=== PATIENT | female | born 1985 | race African-American/Black ===

== ENCOUNTER 2017-02-13 19:43 | Emergency (ER) | payer OTHER ==
[~2017-02-13] VITALS: Ht 157.5 cm; Wt 70.3 kg
[~2017-02-13 19:43] MED LIST: AMOXICILLIN 50500 MG PO; BACTRIM DS TAB1 EACH PO; CARDIZEM CD180 MG PO; HYDROCODONE-AP1 EAC6 PO; NAPROSYN500 MG PO; NOHOMEMEDICATIONS; POTASSIUM20 PO; PYRIDIUM200 MG PO
[2017-02-13 20:35] LABS: URINE BILIRUBIN NEGATIVE (Negative); URINE BLOOD NEGATIVE (Negative); URINE COLOR YELLOW; URINE GLUCOSE-RANDOM* NEGATIVE (Negative); URINE KETONES 1+ (Negative); URINE LEUKOCYTES-REFLEX NEGATIVE (Negative); URINE PROTEIN (DIPSTICK) NEGATIVE (Negative)
[2017-02-13] MEDS ORDERED: FLAGYL500 MG PO (22:49)
[2017-02-13 23:02] VITALS: BP 109/62
[2017-02-14 21:08] LABS: CHLAMYDIA TRACHOMATIS-PCR Negative (Negative); NEISSERIA GONORRHEA-PCR Negative (Negative)
== END 2017-02-13 23:03 | disposition home or self-care (01) ==
LOC: ER 19:43
PROVIDERS: Physician Assistant
DX: N76.0 Acute vaginitis (principal); F10.99 Alcohol use, unspecified with unspecified alcohol-induced disorder

== ENCOUNTER 2018-02-21 15:27 | Emergency (ER) | payer OTHER ==
[~2018-02-21] VITALS: Ht 157.5 cm; Wt 66.7 kg
[~2018-02-21 15:27] MED LIST changes: +FLAGYL500 MG PO
[2018-02-21 16:04] LABS: URINE BILIRUBIN NEGATIVE (Negative); URINE BLOOD 1+ (Negative); URINE CLARITY CLEAR; URINE COLOR YELLOW; URINE GLUCOSE-RANDOM* NEGATIVE (Negative); URINE KETONES NEGATIVE (Negative); URINE NITRITE-REFLEX NEGATIVE (Negative); URINE PROTEIN (DIPSTICK) NEGATIVE (Negative)
[2018-02-21 16:05] LABS: URINE LEUKOCYTES-REFLEX 2+ (Negative)
[2018-02-21] MEDS ORDERED: BACTRIM DS TAB1 EACH PO ×2 (16:12→16:30)
[2018-02-21] MEDS ORDERED: PHENAZOPYRIDIN200 M2 PO (16:12)
[2018-02-21 16:16] LABS: BACTERIA-REFLEX 1-9 Few /HPF (None Seen); CASTS None Seen /LPF (None Seen); MUCUS 0-3 Light strn/LPF (None Seen); SQUAMOUS 4-10 Moderate /LPF (0-3)
[2018-02-21 16:17] LABS: CRYSTALS None Seen /LPF (None Seen); URINE RBC 3-10 Few /HPF (0-2); URINE WBC-REFLEX >25 Many /HPF (0-5); WBC CLUMPS Moderate (None Seen)
[2018-02-21 16:43] VITALS: BP 120/84
== END 2018-02-21 16:39 | disposition home or self-care (01) ==
LOC: ER 15:27
PROVIDERS: Physician Assistant
DX: N39.0 Urinary tract infection, site not specified (principal); R51 Headache

== ENCOUNTER 2019-07-29 12:14 | Emergency (ER) | payer OTHER ==
[~2019-07-29] VITALS: Ht 157.5 cm; Wt 69.0 kg
[~2019-07-29 12:14] MED LIST changes: +PHENAZOPYRIDIN200 M2 PO
[2019-07-29 12:17] VITALS: BP 137/78
[2019-07-29] MEDS ORDERED: NORCO 7.5-3251 EACH PO (13:06)
== END 2019-07-29 13:22 | disposition home or self-care (01) ==
LOC: ER 12:14
DX: K04.7 Periapical abscess without sinus (principal); Z98.890 Other specified postprocedural states

== ENCOUNTER 2020-02-23 16:40 | Emergency (ER) | payer BC ==
[~2020-02-23] VITALS: Ht 157.5 cm; Wt 67.6 kg
[~2020-02-23 16:40] MED LIST changes: +NORCO 7.5-3251 EACH PO
[2020-02-23 17:31] LABS: ABSOLUTE NEUTROPHILS 4.3 thou/uL (1.4-8.2); BASOPHILS 0.8 % (0.0-2.0); EOSINOPHILS 1.6 % (0.0-3.0); HEMATOCRIT 37.2 % (37.0-47.0); HEMOGLOBIN 12.8 gm/dL (12.0-15.0); LYMPHOCYTES 27.1 % (24.0-44.0); MCH 32.5 pg (26.0-34.0); MCHC 34.3 g/dL (28.0-37.0); MCV 94.8 fL (80.0-100.0); MONOCYTES 6.4 % (1.0-8.0); PLATELET COUNT 312 thou/uL (150-400); POLYS 64.1 % (36.0-66.0); RBC 3.93 mil/uL (4.20-5.00); RDW 12.8 % (10.5-14.5); WBC 6.7 thou/uL (4.0-11.0)
[2020-02-23 17:42] LABS: ANION GAP 10 mmol/L (7-16); BUN 10 mg/dL (7-18); CALCIUM 8.4 mg/dL (8.5-10.1); CHLORIDE 99 mmol/L (98-107); CO2 25 mmol/L (21-32); GLUCOSE 124 mg/dL (74-106); POTASSIUM 3.3 mmol/L (3.5-5.1); SODIUM 134 mmol/L (136-145)
[2020-02-23 17:52] LABS: ALBUMIN 3.5 g/dL (3.4-5.0); SGOT 22 U/L (15-37); SGPT 24 U/L (30-65); TOTAL BILIRUBIN 0.3 mg/dL (0.2-1.0); TOTAL PROTEIN 7.1 g/dL (6.4-8.2); TROPONIN-I <0.06 ng/mL (<0.06)
[2020-02-23 18:32] LABS: URINE BILIRUBIN NEGATIVE (Negative); URINE BLOOD NEGATIVE (Negative); URINE CLARITY CLEAR; URINE COLOR YELLOW; URINE GLUCOSE-RANDOM* NEGATIVE (Negative); URINE KETONES NEGATIVE (Negative); URINE LEUKOCYTES-REFLEX NEGATIVE (Negative); URINE NITRITE-REFLEX NEGATIVE (Negative); URINE PROTEIN (DIPSTICK) NEGATIVE (Negative); URINE SPECIFIC GRAVITY 1.025 (1.005-1.035)
[2020-02-23 18:40] LABS: AMP/METHAMP Negative (Negative); BARBITURATES Negative (Negative); BENZODIAZEPINES Negative (Negative); COCAINE Negative (Negative); METHADONE Negative (Negative); OPIATES Negative (Negative); PCP Negative (Negative)
[2020-02-23 19:17] VITALS: BP 114/70
== END 2020-02-23 19:17 | disposition home or self-care (01) ==
LOC: ER 16:40
PROVIDERS: Physician Assistant
DX: U07.1 COVID-19 (principal); R06.02 Shortness of breath; R00.2 Palpitations; R07.9 Chest pain, unspecified; Z98.890 Other specified postprocedural states